=== PATIENT | female | born 1995 | race Asian ===

== ENCOUNTER → 2024-01-09 15:46 | Outpatient (CLI) | payer OTHER, SELFPAY ==
--- NOTE | 2024-01-09 15:48 | DI.US.S_ITS ---
PROCEDURE: US PELVIC COMPLETE INDICATIONS: dyspareunia TECHNIQUE: Real-time scanning was performed of the pelvic organs, with image documentation. Additional endovaginal scanning was necessary due to incomplete visualization of the adnexal and endometrial structures by transabdominal scanning. COMPARISON: None. FINDINGS: Uterus: Uterus is anteverted and normal in size at 6.9 x 4.4 x 2.7 cm. The myometrium is homogeneous. No discrete uterine fibroids. The endometrium measures 2.8 mm combined thickness. Small to moderate amount of mildly complex fluid is noted within endometrium. Intrauterine device is noted in its normal central endometrial location. Questionable hyperechoic nodule is seen within endometrium of mid to lower uterine segment and measures 5 x 5 x 2 mm in size. No internal vascularity is seen. Ovaries: The right ovary measures 4.2 x 2.3 x 1.9 cm, with a calculated ovarian volume of 9.5 cc. The left ovary measures 5.2 x 1.8 x 2.0 cm, with a calculated ovarian volume of 9.8 cc. The ovaries have a normal sonographic appearance. Less than 12 follicles can be seen in each ovary. No adnexal masses are seen. Other: No pathologic free abdominal or pelvic fluid. IMPRESSION: 1. Intrauterine device is seen in its normal central endometrial location. 2. Small to moderate amount of mildly complex fluid within the endometrium. Possible 5 mm polyp within endometrium inferior to the IUD suggest [employer] correlation. 3. Normal appearing bilateral ovaries. We strive to produce accurate, complete, and clear reports of imaging services. To assist us in improving patient care, this report was composed using standard report templates and voice recognition software. Therefore, it may contain abnormal punctuation, insertions and/or omissions. Occasional wrong-word or sound-alike substitutions may occur. Though we review the report and make efforts to correct it, we do recommend that the report be read carefully in proper context to recognize any text inaccuracies. Dictated by: Mejia Aquino M.D. on 01/09/2024 at 20:39 Approved by: Mejia Aquino M.D. on 01/09/2024 at 20:42
== END ==
LOC: US 15:48
PROVIDERS: Referring Provider Family Medicine; Visit Provider Family Medicine
DX: N94.10 Unspecified dyspareunia (principal); Z97.5 Presence of (intrauterine) contraceptive device
CPT/HCPCS: 76856